=== PATIENT | female | born 1975 ===

== ENCOUNTER 2020-07-19 11:52 | Day surgery (SDC) | payer OTHER | END 2020-07-19 21:05 | disposition home or self-care (01) | LOC: CIR.AMB 11:52 | PROVIDERS: ATTEND Obstetrics & Gynecology | DX: N84.0 Polyp of corpus uteri (principal); Z20.822 Contact with and (suspected) exposure to COVID-19 ==

== ENCOUNTER 2020-11-15 08:00 | Inpatient (IN) | payer OTHER ==
[~2020-11-15] VITALS: Ht 160 cm; Wt 122.5 kg
[2020-11-15] MEDS ORDERED: FLONASE16 GM (11:47)
[2020-11-15] MEDS ORDERED: SINGULAIR10 MG PO (11:47)
[2020-11-23] MEDS ORDERED: LISINOPRIL5 MG (08:08)
== END 2020-11-25 09:40 | disposition home or self-care (01) | DRG 743 ==
LOC: SURH 11-22 08:00 → OB/GYN 11-22 11:30 → O/R 11-22 11:30 → OB/GYN 11-22 21:07
PROVIDERS: ADMIT Obstetrics & Gynecology; ATTEND Obstetrics & Gynecology
PROC: 0UB70ZZ Excision of Bilateral Fallopian Tubes, Open Approach (ICD-10-PCS; 2020-11-22)
PROC: 0UT90ZZ Resection of Uterus, Open Approach (ICD-10-PCS; principal; 2020-11-22 08:45)
DX: N72 Inflammatory disease of cervix uteri (principal); N80.0 Endometriosis of uterus; N73.6 Female pelvic peritoneal adhesions (postinfective); N80.2 Endometriosis of fallopian tube; N93.9 Abnormal uterine and vaginal bleeding, unspecified